=== PATIENT | male | born 1970 | race African-American/Black ===

== ENCOUNTER 2022-04-07 02:45 | Emergency (ER) | payer OTHER ==
[~2022-04-07] VITALS: Ht 182.9 cm; Wt 104.3 kg
[2022-04-07 02:45] VITALS: BP 140/90
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
[2022-04-07 02:55] VITALS: BP 140/90
--- NOTE | 2022-04-07 03:00 | NUR ---
SEEN AND EXAMINED BY TIAGO
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
== END 2022-04-07 03:14 ==
LOC: MED 02:45
DX: Z02.89 Encounter for other administrative examinations (principal); I10 Essential (primary) hypertension; V49.88XA Car occupant (driver) (passenger) injured in other specified transport accidents, initial encounter; Y93.89 Activity, other specified; Y92.89 Other specified places as the place of occurrence of the external cause; Y99.8 Other external cause status
CPT/HCPCS: 99283